=== PATIENT | male | born 1985 | race American Indian/Alaskan Native ===

== ENCOUNTER 2017-06-05 10:56 | Emergency (ER) | payer MEDICAID ==
[2017-06-05] MEDS ORDERED: HYDROmorphone 1 MG/ML Syringe IM ONE (11:44)
--- NOTE | 2017-06-05 11:44 | EDM.PDOC ---
ED HPI GENERAL MEDICAL PROBLEM - General Chief Complaint: Upper Extremity Injury/Pain Stated Complaint: R SHOULDER/ARM PAIN Time Seen by Provider: 06/05/17 11:18 Source of Information: Reports: Patient History Limitations: Reports: No Limitations - History of Present Illness INITIAL COMMENTS - FREE TEXT/NARRATIVE: 32-year-old male fell off a ladder onto his right arm this morning sustaining an injury to his mid humerus. No other injury. He has significant pain, slight deformity and swelling of the upper right arm. Denies any numbness to the hand, no pain in the shoulder or elbow. No other injury. Onset: Sudden Duration: Hour(s): (Within the last hour) Right Arm Pain Score (Numeric/FACES): 8 - Related Data Allergies Allergy/AdvReac Type Severity Reaction Status Date / Time No Known Allergies Allergy Verified 06/05/17 11:08 Home Meds: Home Meds NK [No Known Home Meds] 06/05/17 [History] Past Medical History HEENT History: Reports: Other (See Below) Other HEENT History: "lazy eye" Musculoskeletal History: Reports: Fracture - Past Surgical History GI Surgical History: Reports: Appendectomy Social & Family History - Tobacco Use Smoking Status *Q: Heavy Tobacco Smoker Years of Tobacco use: 20 Packs/Tins Daily: 1 - Alcohol Use Days Per Week of Alcohol Use: 3 Number of Drinks Per Day: 6 Total Drinks Per Week: 18 - Recreational Drug Use Recreational Drug Use: Yes Recreational Drug Type: Reports: Marijuana/Hashish Recreational Drug Use Frequency: Weekly Review of Systems - Review of Systems Review Of Systems: See Below Constitutional: Denies: Fever Respiratory: Reports: No Symptoms Cardiovascular: Reports: No Symptoms GI/Abdominal: Reports: Nausea. Denies: Vomiting Skin: Reports: Pallor, Diaphoresis Neurological: Denies: Headache ED EXAM, GENERAL - Physical Exam Exam: See Below Exam Limited By: No Limitations General Appearance: Alert, Mild Distress Neck: Normal Inspection, Non-Tender Respiratory/Chest: No Respiratory Distress Extremities: Other (Exam is otherwise limited to the right arm. There is instability of the mid humerus, marked pain with any movement and significant swelling of the upper arm. No tenderness to the collarbone or glenoid area, no tenderness to the elbow.) Course - Vital Signs Last Recorded V/S: Last Vital Signs Temp 97.7 F 06/05/17 11:05 Pulse 56 L 12/18/17 11:05 Resp 18 06/05/17 11:05 BP 151/96 H 06/05/17 11:05 Pulse Ox 95 06/05/17 11:05 - Orders/Labs/Meds Orders: Active Orders 24 hr Category Date Time Status DME for Discharge [COMM] Stat Oth 06/05/17 12:23 Ordered Meds: Medications Discontinued Medications Generic Name Dose Route Start Last Admin Trade Name Matt PRN Reason Stop Dose Admin Hydromorphone HCl 1 mg 06/05/17 11:44 06/05/17 11:52 Dilaudid IM 06/05/17 11:45 1 mg ONETIME ONE Administration - Re-Assessments/Exams Free Text/Narrative Re-Assessment/Exam: 06/05/17 11:46 X-ray confirms a midshaft right humerus fracture with slight displacement. Patient was given 1 mg of IM Dilaudid and will be placed in a long-arm Ortho- Glass splint and orthopedic referral arranged. 06/05/17 12:23 A 24 inch Ortho-Glass splint was applied to the right arm, and an appointment was scheduled to recheck with Dr. Adams in orthopedics tomorrow [facility]. He was given 10 hydrocodone to use for extra pain control until his appointment tomorrow. He is to keep the arm in the splint and sling until rechecked. Departure - Departure Time of Disposition: 12:55 Disposition: Home, Self-Care 01 Condition: Good Clinical Impression: Fracture of humerus Qualifiers: Encounter type: initial encounter Humerus Location: shaft Fracture type: closed Fracture morphology: transverse Fracture alignment: displaced Laterality : right Qualified Code(s): S42.321A - Displaced transverse fracture of shaft of humerus, right arm, initial encounter for closed fracture - Discharge Information Instructions: Humerus Fracture Treated With Immobilization, [id number] Referrals: PCP,None [Primary Care Provider] - Forms: ED Department Discharge Care Plan Goals: Recheck tomorrow with Dr. Adams at the orthopedic clinic at [facility] in [facility] as scheduled. Keep arm in splint and sling, take ibuprofen for pain and add stronger pain medications if needed. - My Orders Last 24 Hours: My Active Orders 06/05/17 12:23 DME for Discharge [COMM] Stat - Assessment/Plan Last 24 Hours: My Active Orders 06/05/17 12:23 DME for Discharge [COMM] Stat
--- NOTE | 2017-06-05 11:57 | CR ---
Humerus Rt HISTORY: fall,pain FINDINGS: There is an acute transverse fracture mid shaft right humerus. Is mild medial displacement and posterior angulation. No other fracture or dislocation is identified. Joint spaces are preserved. Right upper chest is clear. IMPRESSION: Acute, mildly displaced and angulated transverse fracture mid shaft right humerus.
== END 2017-06-05 12:55 | disposition home or self-care (01) ==
LOC: JP.ED 10:56
DX: S42.321A Displaced transverse fracture of shaft of humerus, right arm, initial encounter for closed fracture (principal); F17.210 Nicotine dependence, cigarettes, uncomplicated; X58.XXXA Exposure to other specified factors, initial encounter
CPT/HCPCS: 29105; 73060; 96372; 99284; J1170; 99282-25